=== PATIENT | male | born 1980 | race Hispanic/Latino ===

== ENCOUNTER 2018-11-20 19:18 | Inpatient (IN) | payer SELFPAY ==
[2018-11-20 21:10] LABS: #Lymphocytes 1.9 thou/uL (1.20-3.40); #Monocytes 1.2 thou/uL (0.11-0.59); #Neutrophils 9.7 thou/uL (1.40-6.50); %Basophils 0.3 % (0.0-1.0); %Eosinophils 0.3 % (0.0-10.0); %Lymphocytes 14.8 % (21.0-51.0); %Monocytes 8.9 % (0.0-10.0); %Neutrophils 75.7 % (42.0-75.0); Mean Corpuscular HGB CONC 35.6 g/dL (32.0-36.0); Mean Corpuscular Hemoglobin 35.1 pg (27.0-31.0); Mean Corpuscular Volume 98.5 fL (78.0-98.0); Mean Platelet Volume 7.4 fL (7.4-10.4); Platelet Count 235 thou/uL (130-400); RBC Distribution Width 11.5 % (11.5-14.5); Red Blood Cell (RBC) Count 5.42 mill/uL (4.70-6.10); White Blood Cell (WBC) Count 12.9 thou/uL (4.8-10.8)
[2018-11-20 21:33] LABS: ALT (SGPT) 35 U/L (8-55); AST (SGOT) 41 U/L (5-34); Albumin 5.4 g/dL (3.5-5.0); Alkaline Phosphatase 119 U/L (40-150); Anion Gap 21 mmol/L (10-20); BUN (Urea Nitrogen) 29 mg/dL (8.9-20.6); Bilirubin, Total 1.9 mg/dL (0.2-1.2); CK (CPK) 221 U/L (30-200); Calc. Creatinine Clearance 0 mL/min (70-130); Carbon Dioxide 24 mmol/L (22-29); Chloride 92 mmol/L (98-107); Estimated GFR-MDRD 29; Globulin 3.9 g/dL (2.4-3.5); Glucose 108 mg/dL (70-105); Potassium 4.5 mmol/L (3.5-5.1); Protein, Total 9.3 g/dL (6.0-8.3); Sodium 132 mmol/L (136-145)
[2018-11-21 02:10] VITALS: BMI 22.5
[2018-11-21 02:11] LABS: Bacteria/HPF None Seen HPF (None Seen); Bilirubin Negative (Negative); Blood, Urine 1+ (Negative); Calcium Oxalate Crystals Rare HPF (None Seen); Clarity Turbid (Clear); Glucose, Urine (Dipstick) Normal (Negative); Leukocyte Negative Leu/uL (Negative); Nitrite Negative (Negative); Protein, Urine (Dipstick) 30 mg/dL (Neg-Trace); RBC/HPF 0-3 HPF (0-3); Squamous Epithelial 0-3 HPF (0-3); Urobilinogen Normal mg/dL (Less than 2)
[2018-11-21] MEDS ORDERED: Acetaminophen 650 MG Suppository PR PRN (05:12)
[2018-11-21] MEDS ORDERED: Acetaminophen 325 MG TAB PO PRN (05:12)
[2018-11-21] MEDS ORDERED: Ondansetron PF 4 MG/2 ML Vial IVP PRN (05:12)
[2018-11-21] MEDS ORDERED: Ondansetron ODT 4 MG TAB PO PRN (05:12)
[2018-11-21 05:34] LABS: Hemoglobin 17.5 g/dL (14.0-18.0); Mean Corpuscular HGB CONC 35.1 g/dL (32.0-36.0); Mean Corpuscular Hemoglobin 35.1 pg (27.0-31.0); Mean Platelet Volume 7.5 fL (7.4-10.4); Platelet Count 207 thou/uL (130-400); RBC Distribution Width 11.5 % (11.5-14.5); Red Blood Cell (RBC) Count 4.99 mill/uL (4.70-6.10); White Blood Cell (WBC) Count 9.6 thou/uL (4.8-10.8)
[2018-11-21] MEDS: Sodium Chloride 0.9% 1,000 ML IV SCH ×3 (05:53→23:53)
[2018-11-21 05:57] LABS: ALT (SGPT) 27 U/L (8-55); AST (SGOT) 34 U/L (5-34); Albumin 4.6 g/dL (3.5-5.0); Alkaline Phosphatase 96 U/L (40-150); Anion Gap 12 mmol/L (10-20); BUN (Urea Nitrogen) 29 mg/dL (8.9-20.6); Bilirubin, Direct 0.8 mg/dL (0.1-0.3); Calc. Creatinine Clearance 64 mL/min (70-130); Calcium 9.3 mg/dL (7.8-10.44); Carbon Dioxide 28 mmol/L (22-29); Chloride 96 mmol/L (98-107); Eosinophils 1 % (0-10); Estimated GFR-MDRD 56; Globulin 3.1 g/dL (2.4-3.5); Glucose 86 mg/dL (70-105); Lipase 51 U/L (8-78); Lymphocytes 24 % (21-51); MDiff Complete? YES; Magnesium 2.5 mg/dL (1.6-2.6); Monocytes 18 % (0-10); Neutrophil 56 % (42-75); Potassium 3.3 mmol/L (3.5-5.1); Protein, Total 7.7 g/dL (6.0-8.3); Sodium 133 mmol/L (136-145)
--- NOTE | 2018-11-21 06:06 | HP ---
PRIMARY CARE PHYSICIAN: None. CHIEF COMPLAINT: Muscle cramping, nausea, and vomiting. HISTORY OF PRESENT ILLNESS: Mr. 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 He states he typically maintains adequate hydration and denies drinking any caffeinated beverages or alcohol in recent days. He states he suddenly began to feel unwell, had noted decreased urinary output. He had 2 episodes of vomiting, which he states were small amounts of vomit. He was seen in the Emergency Department and given 1 L of normal saline. He was initially noted to be tachycardic with a heart rate of 110. This did improve. The patient states after receiving fluids, he started to feel significantly better. LABORATORY STUDIES: He underwent laboratory studies which showed elevated white count of 12.9, hemoglobin of 19, hematocrit of 53.5, and platelets 235. Sodium was 132. BUN 29, creatinine 2.56, GFR 29, glucose 108, calcium 11, total bilirubin 1.9, AST 41, ALT 35, and alkaline phosphatase 119. CK 221. Albumin 5.4. Urinalysis was done showing 46 white blood cells, no bacteria, no leukocyte esterase, no nitrites. The patient was admitted for further hydration and observation. REVIEW OF SYSTEMS: At this present time, the patient denies having any further muscle cramping. Denies having any further nausea or vomiting. No headaches or dizziness. Denies having any fevers, chills, or sweats. No loose stools. No chest pain, palpitations, or shortness of breath. All other review of systems are negative. PAST MEDICAL HISTORY: None. PAST SURGICAL HISTORY: None. 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 He denies any tobacco use or illicit drug use. He drinks alcohol occasionally on the weekends. ALLERGIES: NO KNOWN DRUG ALLERGIES. CURRENT MEDICATIONS: None. PHYSICAL EXAMINATION: GENERAL: The patient appears thin, well-developed, and in no acute distress. VITAL SIGNS: Temperature 98.3, pulse 78, respirations 16, O2 saturation 96% on room air, blood pressure 113/65. HEENT: Normocephalic and atraumatic. Pupils are equal, round, and reactive to light. Sclerae icterus. Oropharynx is clear. NECK: Supple without lymphadenopathy. LUNGS: Clear to auscultation bilaterally without wheezes, rales, or rhonchi. CARDIAC: Regular rate and rhythm without audible murmurs, rubs, or gallops. ABDOMEN: Soft, nontender, and nondistended. Normoactive bowel sounds present. EXTREMITIES: No lower leg swelling or edema. NEUROLOGIC: Alert and oriented x3. SKIN: Without rash or jaundice. INVESTIGATIONS: As mentioned above in HPI. IMPRESSION AND PLAN: Mr. Judge is a very pleasant 38-year-old gentleman, who has been referred for management of the following. 1. Acute kidney injury secondary to heat exhaustion. Laboratory studies are notable for elevated white count and hemoglobin, likely due to hemoconcentration. He has been given 1 L of normal saline in the Emergency Department. We will continue IV hydration. The patient symptomatically improved, already following fluids given in the ED. No further nausea or vomiting. We will repeat laboratory studies including a CMP with morning labs. This will include liver function tests, given slightly bumped liver function tests on initial presentation. 2. Nausea and vomiting, resolved. [place] ordered p.r.n. if needed. We will add on magnesium to labs as well and replace if needed. We will start patient on a clear liquid diet, given the fact he is having vomiting and will advance as tolerated. 3. Gastrointestinal prophylaxis. 4. Deep venous thrombosis prophylaxis. The patient is ambulatory. 5. Code status, full. His surrogate decision maker is his , Shayy Judge. The patient's case discussed with attending, who agrees with plan of care as described above. Job ID: [id number]
[2018-11-21] MEDS ORDERED: Famotidine/PF 20 mg/2ml Vial SLOW IVP SCH (09:00)
[2018-11-21] MEDS: Famotidine 20 MG TAB PO SCH (20:13)
[2018-11-22 07:42] VITALS: BP 103/66; TEMP 98.7
[2018-11-22 07:50] LABS: #Eosinphils 0.2 thou/uL (0.0-0.7); #Lymphocytes 2.3 thou/uL (1.20-3.40); #Monocytes 0.9 thou/uL (0.11-0.59); %Basophils 0.5 % (0.0-1.0); %Eosinophils 2.2 % (0.0-10.0); %Lymphocytes 31.5 % (21.0-51.0); %Monocytes 12.3 % (0.0-10.0); %Neutrophils 53.5 % (42.0-75.0); Mean Corpuscular HGB CONC 34.3 g/dL (32.0-36.0); Mean Corpuscular Hemoglobin 34.3 pg (27.0-31.0); Mean Platelet Volume 7.6 fL (7.4-10.4); Platelet Count 153 thou/uL (130-400); RBC Distribution Width 11.4 % (11.5-14.5); Red Blood Cell (RBC) Count 4.65 mill/uL (4.70-6.10); White Blood Cell (WBC) Count 7.4 thou/uL (4.8-10.8)
[2018-11-22] MEDS: Famotidine 20 MG TAB PO SCH (08:04)
[2018-11-22] MEDS: Sodium Chloride 0.9% 1,000 ML IV SCH (08:05)
[2018-11-22 08:10] LABS: ALT (SGPT) 22 U/L (8-55); AST (SGOT) 26 U/L (5-34); Albumin 3.6 g/dL (3.5-5.0); Alkaline Phosphatase 82 U/L (40-150); Anion Gap 9 mmol/L (10-20); BUN (Urea Nitrogen) 19 mg/dL (8.9-20.6); Bilirubin, Total 1.4 mg/dL (0.2-1.2); Calc. Creatinine Clearance 111 mL/min (70-130); Calcium 8.3 mg/dL (7.8-10.44); Carbon Dioxide 27 mmol/L (22-29); Chloride 106 mmol/L (98-107); Estimated GFR-MDRD Greater than 90; Globulin 2.6 g/dL (2.4-3.5); Glucose 80 mg/dL (70-105); Potassium 3.8 mmol/L (3.5-5.1); Protein, Total 6.2 g/dL (6.0-8.3); Sodium 138 mmol/L (136-145)
[2018-11-22] MEDS ORDERED: Multivit, Therapeutic 1 TAB PO SCH (09:00)
[2018-11-22] MEDS ORDERED: Thiamine 100 MG TAB PO SCH (09:00)
[2018-11-22] MEDS ORDERED: Folic Acid 1 MG TAB PO SCH (09:00)
--- NOTE | 2018-11-22 16:14 | DIS ---
DATE OF ADMISSION: 11/20/2018 DATE OF DISCHARGE: 11/22/2018 DISCHARGE DISPOSITION: Home. FOLLOWUP: Follow up with primary care physician at [facility] in 1 week. CONDITION ON DISCHARGE: The patient was seen and examined on the day of discharge. Denies any new complaints. No chest pain, shortness of breath, or palpitations. 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 Please refer to the history and physical for further details. The patient was admitted to the hospital with a diagnosis of acute kidney injury secondary to heat exhaustion. His creatinine on admission was 2.56 with BUN of 29. He showed good improvement with IV hydration. His creatinine on the day of discharge is 0.82. He was extensively counseled to monitor his fluid intake while working outside in sun. Alcohol cessation was emphasized. He was also advised to start [id number] multivitamins including thiamine and folic acid. FINAL DIAGNOSES: 1. Acute kidney injury secondary to heat exhaustion. 2. Nausea and vomiting secondary to #1. 3. Hypokalemia, replaced. 4. Macrocytosis, probably secondary to alcoholism. 5. Dehydration, resolved. 6. Abnormal liver function tests, probably secondary to #1 versus alcoholism. 7. Significant labs: CK was 221. Total bilirubin maximum was 2.0, at discharge 1.4. Potassium 3.3. Job ID: [id number]
== END 2018-11-22 11:34 | disposition home or self-care (01) | DRG 684 ==
LOC: ERS 19:18 → T4-A 23:11
PROVIDERS: ADMIT Hospitalist; ATTEND Hospitalist
DX: N17.9 Acute kidney failure, unspecified (principal); T67.5XXA Heat exhaustion, unspecified, initial encounter; E87.6 Hypokalemia; D75.89 Other specified diseases of blood and blood-forming organs; E86.0 Dehydration; X30.XXXA Exposure to excessive natural heat, initial encounter; Z71.41 Alcohol abuse counseling and surveillance of alcoholic
CPT/HCPCS: 36415; 80053; 81003; 81015; 82248; 82550; 83690; 83735; 85025; 96360; 96361; S0028